=== PATIENT | female | born 1965 | race Caucasian/White ===

== ENCOUNTER 2021-08-11 17:34 | Emergency (ER) | payer OTHER, SELFPAY ==
[2021-08-11 17:51] VITALS: BP 119/80; PULSE 101; RESP 18; TEMP 36.6; O2SAT 100
--- NOTE | 2021-08-11 18:09 | ED.GENADULT ---
HPI - General Adult General Chief complaint: Upper Respiratory Infection Stated complaint: fluid in rt ear,watery eyes,head pain Source: patient Mode of arrival: ambulatory Limitations: no limitations History of Present Illness HPI narrative: Patient is a 56-year-old female presents to the urgent care via POV accompanied by spouse for evaluation of a sinus problem that began 2 days ago. Additionally, she reports postnasal drip, sinus pain, sinus pressure, sinus headaches, dental pain, right ear pain, and fever. She reports her maximum temperature to be 99.0. NyQuil improves symptoms. Saranya pot worsen symptoms. Patient states that [place] Cuellar in the past have been very helpful although her Con[place] pot rinses have been painful. She has a history of chronic sinusitis. She states she had sinus surgery at that time and has not had a sinus infection since then. She is fully vaccinated against Covid and also has had booster. She is also vaccinated against influenza. Related Data Home Medications Medication Instructions Recorded Confirmed aspirin 81 mg DAILY 08/11/21 08/11/21 celecoxib 200 mg DAILY 08/11/21 08/11/21 cholecalciferol (vitamin D3) 125 mcg DAILY 08/11/21 08/11/21 conj estrog-medroxyprogest kristan 1 tablet PO DAILY 08/11/21 08/11/21 [Prempro] fexofenadine 180 mg DAILY 08/11/21 08/11/21 venlafaxine 37.5 mg PO DAILY 08/11/21 08/11/21 Allergies Allergy/AdvReac Type Severity Reaction Status Date / Time No Known Allergies Allergy Verified 08/11/21 18:22 Review of Systems Review of Systems: Denies chills, sweats, change in appetite, poor p.o. intake, weight loss, dizziness, ear drainage, LOC, hearing difficulty, rhinorrhea, sore throat, drooling, difficulty swallowing, chest pain, palpitations, abdominal pain, nausea, vomiting, diarrhea, and myalgias. [facility] Past Medical History Medical History (Updated 08/11/21 @ 18:46 by Roberto Foster, INTERNATIONAL [employer]OUNT EXECUTIVE, ) Anxiety Depression Perimenopausal Comments I have reviewed and agree with the patient's past medical, surgical, social, and family hx as documented by the RN. There is no relevant family history pertinent to the presenting complaint. Exam Narrative: GENERAL: Well-appearing, well-nourished, and in no acute distress. HEAD: Normocephalic, atraumatic. Moderate maxillary and frontal sinus tenderness appreciated upon palpation. EYES: PERRLA and EOMI. No evidence of erythema, swelling, or drainage. ENT: Right TM bulging with marked erythema. Left TM normal. bilateral external ears and ear canals normal. No TM perforation. Nares clear, no rhinorrhea or epistaxis. Bilateral turbinates without erythema/ swelling. Mucous membranes moist and pink. Uvula is midline without erythema and swelling. No evidence of petechial rash, cobblestoning, lesions, ulcers, erythema, swelling, exudates, peritonsillar abscess, tenting, or drooling. Breath odor and voice normal. NECK: Supple. No Lymphadenopathy or nuchal rigidity appreciated. CHEST: Bilateral lung guzman are clear to auscultation. No respiratory distress. No evidence of cough or pleuritic cp upon examination. HEART: Regular rate and rhythm. No murmur, gallop, or rub heard. EXTREMITIES: Normal range of motion. No edema. SKIN: Warm, dry, no rash. NEURO: No focal deficits. Alert and oriented x3. Course Vital Signs Vital signs: Vital Signs Temperature 98 F 08/11/21 17:51 Pulse Rate 101 H 08/11/21 17:51 Respiratory Rate 18 08/11/21 17:51 Blood Pressure 119/80 08/11/21 17:51 Pulse Oximetry 100 08/11/21 17:51 Temperature 98 F 08/11/21 17:51 Pulse Rate 101 H 08/11/21 17:51 Respiratory Rate 18 08/11/21 17:51 Blood Pressure 119/80 08/11/21 17:51 Pulse Oximetry 100 08/11/21 17:51 Reviewed Medical Decision Making Differential Diagnosis Differential Diagnosis: Allergic rhinitis, ABRS, acute viral sinusitis, strep pharyngitis, nasopharyngitis, bronchitis, pneumonia, AOM, otiti
== END 2021-08-11 19:00 | disposition home or self-care (01) ==
PROVIDERS: Emergency Provider Nurse Practitioner Family
DX: J32.9 Chronic sinusitis, unspecified (principal); H66.91 Otitis media, unspecified, right ear; Z79.82 Long term (current) use of aspirin; F41.9 Anxiety disorder, unspecified; F32.9 Major depressive disorder, single episode, unspecified
CPT/HCPCS: 99213; G0463

== ENCOUNTER → 2021-08-16 01:08 | Outpatient (CLI) | payer OTHER, SELFPAY ==
[2021-08-17 13:55] LABS: SARS-CoV-2 RNA PCR Negative
== END ==
PROVIDERS: Visit Provider Nurse Practitioner Family
DX: H66.91 Otitis media, unspecified, right ear (principal); J32.9 Chronic sinusitis, unspecified; Z20.822 Contact with and (suspected) exposure to COVID-19
CPT/HCPCS: C9803; U0003; U0005